=== PATIENT | female | born 1965 | race Two or more races ===

== ENCOUNTER 2021-12-08 10:42 | Inpatient (IN) | payer OTHER ==
[~2021-12-08] VITALS: Ht 157.5 cm; Wt 72.1 kg
[2021-12-08] MEDS ORDERED: IBERSARTAN (15:09)
[2021-12-08] MEDS ORDERED: FISH OIL 1,0001 EAC1 PO (15:10)
[2021-12-08] MEDS ORDERED: DILTIAZEM 24HR180 MG PO (15:10)
[2021-12-08] MEDS ORDERED: RESTORIL30 M1 PO (15:10)
[2021-12-08] MEDS ORDERED: MIRA PO (15:11)
[2021-12-08] MEDS ORDERED: FOCUS PO (15:11)
[2021-12-08] MEDS ORDERED: VITAMIN C PO (15:12)
[2021-12-13] MEDS ORDERED: IRBESARTAN-HCT1 EAC1 (08:12)
[2021-12-13] MEDS ORDERED: MIRALAX17 GM (08:13)
[2021-12-13] MEDS ORDERED: MAXIMUM D3325 MCG (08:13)
[2021-12-13] MEDS ORDERED: VITAMIN C100 MG PO (08:14)
== END 2021-12-16 14:05 | disposition home or self-care (01) | DRG 331 ==
LOC: SURH 12-13 05:59 → O/R 12-13 05:59 → SURH 12-13 07:00
PROVIDERS: ADMIT Colon & Rectal Surgery; ATTEND Colon & Rectal Surgery
PROC: 0DBM4ZZ Excision of Descending Colon, Percutaneous Endoscopic Approach (ICD-10-PCS; 2021-12-13)
PROC: 07BD4ZX Excision of Aortic Lymphatic, Percutaneous Endoscopic Approach, Diagnostic (ICD-10-PCS; 2021-12-13)
PROC: 3E0F7SF Introduction of Other Gas into Respiratory Tract, Via Natural or Artificial Opening (ICD-10-PCS; 2021-12-13)
PROC: 0DBH4ZZ Excision of Cecum, Percutaneous Endoscopic Approach (ICD-10-PCS; principal; 2021-12-13 07:00)
DX: D01.0 Carcinoma in situ of colon (principal); J45.20 Mild intermittent asthma, uncomplicated; K63.89 Other specified diseases of intestine; G47.00 Insomnia, unspecified; I11.9 Hypertensive heart disease without heart failure; D75.1 Secondary polycythemia; E80.4 Gilbert syndrome